=== PATIENT | female | born 1995 | race Two or more races ===

== ENCOUNTER 2017-02-05 18:55 | Emergency (ER) | payer SELFPAY ==
[~2017-02-05] VITALS: Ht 162.6 cm; Wt 54.4 kg
[2017-02-05 19:25] VITALS: BP 107/63
[2017-02-05] MEDS ORDERED: AMOX1TAB10 PO (20:40)
[2017-02-05] MEDS ORDERED: PRED-220 PO (20:40)
--- NOTE | 2017-02-05 20:40 | PHYS DOC ---
Past Medical History Past Medical History: Asthma Additional Past Medical Histor: Past Surgical History: No Surgical History Alcohol Use: None Drug Use: None Adult General Chief Complaint Chief Complaint: Congestion HPI HPI Patient is a 21 year old female presents the ED complaining of sore throat 3 days. States they're visiting here from [place]. Describes the pain as sharp. Rates the pain as 7 out of 10. Pain with swallowing. Sick contacts with similar symptoms.Associated symptoms includes subjective fever and congestion. Denies chest pain, cough, weakness, dizziness, nausea/vomiting, abdominal pain, diarrhea, shortness of breath or headache. Review of Systems Review of Systems Constitutional: Complains of subjective fever. Denies chills [] Eyes: Denies change in visual acuity, redness, or eye pain [] HENT: Complains of nasal congestion and sore throat [] Respiratory: Denies cough or shortness of breath [] Cardiovascular: No additional information not addressed in HPI [] GI: Denies abdominal pain, nausea, vomiting, bloody stools or diarrhea [] : Denies dysuria or hematuria [] Musculoskeletal: Denies back pain or joint pain [] Integument: Denies rash or skin lesions [] Neurologic: Denies headache, focal weakness or sensory changes [] Endocrine: Denies polyuria or polydipsia [] All other systems were reviewed and found to be within normal limits, except as documented in this note. Allergies Allergies Allergies Coded Allergies Type Severity Reaction Last Updated Verified No Known Drug Allergies 02/05/17 No Physical Exam Physical Exam Constitutional: Well developed, well nourished, no acute distress, non-toxic appearance. [] HENT: Normocephalic, atraumatic, bilateral external ears normal, MILD PHARYNGEAL ERYTHEMA. MILD MAXILLARY SINUS TENDERNESS. oropharynx moist, no oral exudates, nose normal. [] Eyes: PERRLA, EOMI, conjunctiva normal, no discharge. [] Neck: Normal range of motion, no tenderness, supple, no stridor. [] Cardiovascular:Heart rate regular rhythm, no murmur [] Lungs & Thorax: Bilateral breath sounds clear to auscultation [] Abdomen: Bowel sounds normal, soft, no tenderness, no masses, no pulsatile masses. [] Skin: Warm, dry, no erythema, no rash. [] Neurologic: Alert and oriented X 3, normal motor function, normal sensory function, no focal deficits noted. [] Psychologic: Affect normal, judgement normal, mood normal. [] Current Patient Data Vital Signs Vital Signs Date Time Temp Pulse Resp B/P (MAP) Pulse Ox O2 Delivery O2 Flow Rate FiO2 02/05/17 20:36 95 100 Room Air 02/05/17 19:25 99.4 18 99.4 EKG EKG [] Radiology/Procedures Radiology/Procedures [] Course & Med Decision Making Course & Med Decision Making Pertinent Labs and Imaging studies reviewed. (See chart for details) [] Dragon Disclaimer Dragon Disclaimer This electronic medical record was generated, in whole or in part, using a voice recognition dictation system. Departure Departure Impression: Primary Impression: Pharyngitis Additional Impression: Sinusitis Disposition: 01 HOME, SELF-CARE Condition: STABLE Referrals: NO PCP (PCP) ANASTASIA MARTINEZ MD Patient Instructions: Sinusitis, Viral and Bacterial Pharyngitis Scripts Prednisone (PREDNISONE) 10 Mg Tablet 30 MG PO DAILY for 5 Days, #15 TAB Prov: NANDINI GRIMES 02/05/17 Amoxicillin/Potassium Clav (AMOX TR-K CLV 500-125 MG TAB) 1 Each Tablet 1 TAB PO BID, #20 TAB Prov: NANDINI GRIMES 02/05/17 Problem Qualifiers NANDINI GRIMES Feb 05, 2017 20:40
[2017-02-06 10:02] LABS: NEGATIVE OBC STREP NEG; POSITIVE OBC STREP POS
== END 2017-02-05 20:51 | disposition home or self-care (01) ==
LOC: ER 18:55
DX: J02.9 Acute pharyngitis, unspecified (principal); J32.0 Chronic maxillary sinusitis; J45.909 Unspecified asthma, uncomplicated
CPT/HCPCS: 87070; 87880; 99283